=== PATIENT | male | born 1955 | race Caucasian/White ===

== ENCOUNTER 2019-06-09 04:16 | Inpatient (IN) | payer OTHER ==
[2019-06-09] VITALS (10 sets, daily range): BP systolic 119–161; BP diastolic 70–81
[~2019-06-09] VITALS: Ht 177.8 cm; Wt 89.8 kg
[~2019-06-09 04:16] MED LIST: CRESTOR20 MG PO; HYDR25TA PO; IBUP-1060 PO; TRAM50TA PO
[2019-06-09] MEDS ORDERED: AMLO1CAP54 PO (06:02)
[2019-06-09] MEDS ORDERED: CRESTOR5 MG PO (06:02)
[2019-06-09] MEDS ORDERED: CETI10TA16 PO (06:02)
[2019-06-09] MEDS ORDERED: diphenhydrAMINE 50 MG/ML VIAL IVP PRN (07:15)
[2019-06-09] MEDS ORDERED: hydrALAZINE 20 MG/ML VIAL. IVP PRN (07:15)
[2019-06-09] MEDS ORDERED: EPINEPHrine 1 MG/ML VIAL IM PRN (07:15)
[2019-06-09] MEDS: methylPREDNISolone SOD SUCC PF 125 MG/2 ML VIAL. IV SCH ×4 (08:29→23:45)
[2019-06-09] MEDS: FAMOTIDINE 20 MG/2 ML VIAL IVP SCH ×2 (08:29→21:00)
--- NOTE | 2019-06-09 11:21 | PDOC ---
PULMONARY PROGRESS NOTES Vitals Vital Signs Date Time Temp Pulse Resp B/P (MAP) Pulse Ox O2 Delivery O2 Flow Rate FiO2 06/09/19 09:00 76 94 Room Air 06/09/19 06:00 18 06/09/19 05:30 98.1 98.1 Medications Active Scripts Medications Dose Route/Sig Max Daily Dose Days Date Category Amlodipine-Benazepril 10-40 Mg (Amlodipine Besylate/Benazepril) 1 Each Capsule 1 Cap PO DAILY 06/09/19 Reported Cetirizine Hcl 10 Mg Tablet 1 Tab PO DAILY 06/09/19 Reported Crestor (Rosuvastatin Calcium) 5 Mg Tablet 1 Tab PO DAILY 06/09/19 Reported Impression . DICTATED OK TO TRANSFER OUT OF ICU ANGIOEDEMA COPD THANKS SHEYLA LOPEZ MD Jun 09, 2019 11:21
--- NOTE | 2019-06-09 11:38 | HP ---
ADMIT DATE: 06/09/2019 HISTORY OF PRESENT ILLNESS: The patient is a 63-year-old male patient who presented to the Emergency Room of [facility] with markedly swollen tongue. He woke up to urinate around midnight and felt like his tongue felt weird, he looked in the mirror and discovered that left side of his tongue was significantly swollen. Since that time, the patient has had some increasing difficulty swallowing, had no difficulty breathing. He does feel like it is a bit worse since he woke up and had angioedema one time in the past due to antihypertensive medication. He does not remember if it was lisinopril or not, in fact when I asked him, he said it was lisinopril and was switched at that time to valsartan, but unfortunately valsartan was withdrawn from the market and therefore he was put back on a combo of amlodipine and benazepril. On questioning him, none of his family members have similar problems before. He denied any new medication or food. He took 50 mg of Benadryl by mouth on his own before he arrived to the Emergency Room. He was evaluated by the ER physician and was given Solu-Medrol 125 mg together with Benadryl as well as epinephrine and as he continued to have markedly swollen tongue, a decision was made to transfer him to [facility] ICU in case he might require tracheostomy tube placement if the swelling continues or worsens. PAST MEDICAL HISTORY: Significant for hypertension, hyperlipidemia, benign prostatic hypertrophy, has had an episode of angioedema related to his lisinopril diagnosed in April 2018. PAST SURGICAL HISTORY: Significant for hemorrhoidectomy, has also right middle finger laceration that required suturing and also colonoscopy. ALLERGIES: He is allergic to LISINOPRIL AND ALL GHANSHYAM INHIBITORS. MEDICATIONS: He is currently on following medications: He is on cetirizine 10 mg once a day, Crestor 5 mg once a day as well as mixture of amlodipine as well as benazepril, he is also on albuterol inhaler as well as multivitamin. FAMILY HISTORY: He has 3 sisters, younger and all have hypertension. Father at age of 70 because of lung cancer and mother at age of 84 because of COPD. SOCIAL HISTORY: He is , has no children. He smokes 1 to 1-1/2 packs per day. Does not drink alcohol or use any drugs. 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 He is a concrete and stone worker, works for a company. REVIEW OF SYSTEMS: The patient denied any blurring of vision, cataract, glaucoma or macular degeneration. Denied any earache, tinnitus or sensorineural deafness. Denied any nosebleeds, stuffy nose or postnasal drip. Denied any sore throat, sore tongue, toothache, hoarseness of voice or difficulty swallowing. Denied any nausea, vomiting, diarrhea or constipation. Denied any hematemesis, melena or hematochezia. Denied any dysuria, frequency or hematuria, but did complain of nocturia. Denied any chest pain or shortness of breath, but did complain of cough with whitish sputum. Denied any chills, rigors, or fever. Denied any dizziness or lightheadedness. PHYSICAL EXAMINATION: GENERAL: On arrival to the Emergency Room, he looked well and was clearly in no apparent respiratory distress. No pallor, jaundice, cyanosis or thyromegaly. No jugular venous distention. No limb edema. VITAL SIGNS: His heart rate was 78, blood pressure was 160/86, temperature was 98, respiratory rate was 20, and oxygen saturation was 93% on room air. HEAD, EYES, EARS, NOSE AND THROAT: Showed normocephalic, atraumatic. He definitely has marked swollen tongue according to ER physician. NECK: Supple. HEART: Showed normal first and second heart sounds. No gallop or murmur. CHEST: Clear to auscultation. No crepitation or rhonchi. ABDOMEN: Distended, soft, nontender. NEUROLOGIC: He was awake, alert, responding appropriately. All cranial nerves intact. EXTREMITIES: He moves extremities without difficulty. LABORATORY DATA: On arrival to the Emergency Room showed white cell count [id number], hemoglobin 14.8, hematocrit 45, MCV 86 and platelet count 240,000 with normal manual differential. His serum sodium was 141, potassium 4, chloride 105, bicarbonate 26, anion gap of 10, BUN 28, creatinine 1, estimated GFR was 76 mL per minute, his glucose was 100 and calcium was 9. Total bilirubin, AST, ALT, alkaline phosphatase were normal. Total protein was 7.5. Albumin was 3.5. ASSESSMENT AND PLAN: In summary, this is a 63-year-old male patient who has experienced second episode of angioedema. The first one was a year ago due to lisinopril and this time to benazepril. I explained to him that he should not take this benazepril anymore or any member of its GHANSHYAM inhibitor family, should be on angiotensin blocking receptor agent. Apparently tried the valsartan, but unfortunately it was withdrawn from the market. By the time I saw him in the ICU in [facility], his tongue has improved dramatically and has no shortness of breath and no difficulty swallowing. We will start him on his regular diet, he can be transferred to the floor. I will obviously discontinue benazepril and start him on perhaps Diovan, I will contact the pharmacy to find out it was available. ROSALIA MCKENZIE MD DR: IONA/yudi JOB#: [id number] / [id number]
--- NOTE | 2019-06-09 16:03 | NUR ---
SS following for discharge planning. SS reviewed pt chart. Pt is from home with spouse and is currently on room air. SS will continue to follow for discharge planning.
[2019-06-10 03:20] VITALS: BP 146/70
--- NOTE | 2019-06-10 06:07 | CONS ---
DATE OF CONSULTATION: 06/09/2019 ATTENDING PHYSICIAN: Sourav Anand MD REASON FOR CONSULTATION: The patient seen in pulmonary consultation at the request of Dr. Anand for respiratory distress, angioedema. HISTORY OF PRESENT ILLNESS: The patient is a 63-year-old who presented to the Emergency Room at [facility]. He woke up having tongue swelling. He was having difficulty swallowing in his secretions, increasing shortness of breath. The patient was recently started on an GHANSHYAM inhibitor. He was stabilized in the Emergency Room and transferred to [facility] for higher acuity of care. He was then placed in the intensive care unit and supported. Overnight, he has improved. His tongue has gone down. He did not require any noninvasive ventilation. The patient does smoke. He tried to quit smoking several years ago. He smokes up to a pack of cigarettes a day and has done so for most of his adult life. He has not been diagnosed with COPD, uses albuterol on a p.r.n. basis, does not have any frequent acute exacerbations of COPD. PAST MEDICAL HISTORY: Remarkable for hypertension, hyperlipidemia, osteoarthritis, tobacco dependence, COPD, unknown FEV1. ALLERGIES: TO GHANSHYAM INHIBITORS. REVIEW OF SYSTEMS: As indicated above, otherwise, a 10-point system was reviewed and negative. CURRENT MEDICATION: List was reviewed. SOCIAL HISTORY: He smokes. He works in construction. FAMILY HISTORY: Remarkable for lung cancer. Father at the age of 70. PHYSICAL EXAMINATION: GENERAL: The patient was in the intensive care unit. He is currently doing better. VITAL SIGNS: He is on room air saturation 94%. HEENT: Eyes, the sclerae were nonicteric. Tongue, the patient was able to protrude his tongue. It was definitely swollen, but decreased in comparison to yesterday. NECK: Jugular venous distention was not elevated. No lymphadenopathy. CHEST: Full expansion. LUNGS: Adequate airway flow with no wheezes. CARDIOVASCULAR: Regular rate and rhythm with S1, S2, no S3. ABDOMEN: Soft, nontender, nondistended. EXTREMITIES: No clubbing, cyanosis, or edema. LABORATORY DATA: Reviewed. Chest x-ray was likewise reviewed. IMPRESSION: 1. Respiratory distress secondary to angioedema. 2. Angioedema related to GHANSHYAM inhibitor utilization. 3. Hypertension. 4. Tobacco dependent. 5. Chronic obstructive pulmonary disease. 6. Prior history of pulmonary nodule that was followed for over 2 years. PLAN: 1. The patient has improved. We will transfer out of the intensive care unit. 2. Outpatient PFTs and surveillance CT chest for early lung cancer. 3. The patient instructed on the importance of discontinuing tobacco use. I do appreciate the privilege in sharing in the patient's care. SHEYLA LOPEZ MD DR: MAE/yudi JOB#: [id number] / [id number]
[2019-06-10] MEDS: methylPREDNISolone SOD SUCC PF 125 MG/2 ML VIAL. IV SCH (07:05)
[2019-06-10 08:29] VITALS: BP 146/56
[2019-06-10] MEDS: FAMOTIDINE 20 MG/2 ML VIAL IVP SCH (08:41)
[2019-06-10] MEDS ORDERED: LOSA100T14 PO (09:36)
[2019-06-10] MEDS ORDERED: AMLO10TA8 PO (09:36)
--- NOTE | 2019-06-10 10:56 | PDOC ---
PULMONARY PROGRESS NOTES Vitals Vital Signs Date Time Temp Pulse Resp B/P (MAP) Pulse Ox O2 Delivery O2 Flow Rate FiO2 06/10/19 08:29 97.8 67 22 146/56 (86) 97 Room Air 97.8 Medications Active Scripts Medications Dose Route/Sig Max Daily Dose Days Date Category Amlodipine-Benazepril 10-40 Mg (Amlodipine Besylate/Benazepril) 1 Each Capsule 1 Cap PO DAILY 06/09/19 Reported Cetirizine Hcl 10 Mg Tablet 1 Tab PO DAILY 06/09/19 Reported Crestor (Rosuvastatin Calcium) 5 Mg Tablet 1 Tab PO DAILY 06/09/19 Reported Impression . IMPRESSION: 1. Respiratory distress secondary to angioedema. 2. Angioedema related to GHANSHYAM inhibitor utilization. 3. Hypertension. 4. Tobacco dependent. 5. Chronic obstructive pulmonary disease. 6. Prior history of pulmonary nodule that was followed for over 2 years. Plan . 1. The patient has improved. We will transfer out of the intensive care unit. 2. Outpatient PFTs and surveillance CT chest for early lung cancer. 3. The patient instructed on the importance of discontinuing tobacco use. SHEYLA LOPEZ MD Jun 10, 2019 10:56
--- NOTE | 2019-06-10 12:20 | NUR ---
Discharge Note: [facility] Discharge instructions and discharge home medications reviewed with Patient and a copy given. All questions have been answered and understanding verbalized. The following instructions and handouts were given: follow up instructions, prescriptions for medrol dose pack, amlodipine, losartan and medication education Discontinued lines and drains: 20 gauge right ac, tip intact. patient tolerated well. Patient discharged to home with self care via significant other.
--- NOTE | 2019-06-10 18:24 | DS ---
DATE OF DISCHARGE: 06/10/2019 HOSPITAL COURSE: The patient is a 63-year-old male patient who was seen yesterday at [facility] Emergency Room for markedly swollen tongue and difficulty swallowing. I transpired that he developed angioneurotic edema as he has on benazepril. He apparently has had another similar episode a year ago and he was on lisinopril and basically was treated aggressively with IV Solu-Medrol, Benadryl, Pepcid as well as epinephrine and he did actually very well. All the swelling has completely subsided. He has no further episode of difficulty swallowing or shortness of breath. He was given clear instruction to avoid all GHANSHYAM inhibitors and we switched him to an ARB angiotensin receptor sussy agent in the form of losartan. He was also counseled to quit smoking and given literature for that and was discharged home to continue on his amlodipine as well as losartan instead of benazepril. PHYSICAL EXAMINATION: GENERAL: When I saw him this morning, he looked well and was clearly in no apparent respiratory distress. No pallor, jaundice, cyanosis or thyromegaly. No jugular venous distention. No limb edema. VITAL SIGNS: His heart rate was 67, blood pressure was 146/56, temperature was 97.8, respiratory rate was 22 and oxygen saturation was 97%. HEAD, EYES, EARS, NOSE AND THROAT: Showed normocephalic, atraumatic. NECK: Supple. HEART: Showed normal first and second heart sounds. No gallop or murmur. CHEST: Clear to auscultation. No crepitation or rhonchi. ABDOMEN: Distended, soft, nontender. NEUROLOGIC: He is awake, alert, responding appropriately. All cranial nerves are intact. He moves extremities without difficulty. DISCHARGE MEDICATIONS: The patient was discharged home to continue on amlodipine besylate 10 mg once a day, losartan potassium 100 mg once a day, cetirizine 10 mg once a day, Crestor 5 mg at bedtime. I have discontinued his amlodipine/benazepril combination. FINAL DISCHARGE DIAGNOSES: Angioneurotic edema resolved, hypertension, hyperlipidemia and tobacco abuse. ROSALIA MCKENZIE MD DR: IONA/yudi JOB#: [id number] / [id number]
== END 2019-06-10 12:05 | disposition home or self-care (01) | DRG 916 ==
LOC: 1 WEST ICU 05:27 → 6 SOUTH 16:40
PROVIDERS: ADMIT Internal Medicine; ATTEND Internal Medicine
DX: T78.3XXA Angioneurotic edema, initial encounter (principal); E78.5 Hyperlipidemia, unspecified; J44.9 Chronic obstructive pulmonary disease, unspecified; N40.0 Benign prostatic hyperplasia without lower urinary tract symptoms; I10 Essential (primary) hypertension; R13.10 Dysphagia, unspecified; T46.4X5A Adverse effect of angiotensin-converting-enzyme inhibitors, initial encounter; M19.90 Unspecified osteoarthritis, unspecified site; Z80.1 Family history of malignant neoplasm of trachea, bronchus and lung; Z82.49 Family history of ischemic heart disease and other diseases of the circulatory system; Z88.8 Allergy status to other drugs, medicaments and biological substances; Z82.5 Family history of asthma and other chronic lower respiratory diseases; Z79.899 Other long term (current) drug therapy; Y92.89 Other specified places as the place of occurrence of the external cause; F17.210 Nicotine dependence, cigarettes, uncomplicated
CPT/HCPCS: 99406; J2930; J3490; G0378

== ENCOUNTER 2020-07-23 08:20 | Outpatient (CLI) | payer OTHER ==
[2020-07-23] VITALS (11 sets, daily range): BP systolic 119–151; BP diastolic 61–90
[~2020-07-23] VITALS: Ht 177.8 cm; Wt 97.5 kg
[~2020-07-23 08:20] MED LIST changes: +AMLO-187 PO; +AMLO1CAP54 PO; +CETI10TA16 PO; +CRESTOR5 MG PO; +LOSA100T14 PO
[2020-07-23] MEDS ORDERED: HYDR-2765 PO (08:55)
[2020-07-23 08:57] LABS: BASO # 0.2 x10^3/uL (0.0-0.2); BASO % 1 % (0-3); EOS # 0.2 x10^3/uL (0.0-0.7); EOS % 2 % (0-3); HEMATOCRIT 47.6 % (39.0-53.0); HEMOGLOBIN 16.5 g/dL (13.0-17.5); LYMPH # 2.9 x10^3/uL (1.0-4.8); LYMPH % 25 % (24-48); MEAN CORPUSCULAR HEMOGLOBIN 29 pg (25-35); MEAN CORPUSCULAR HGB CONC 35 g/dL (31-37); MEAN CORPUSCULAR VOLUME 85 fL (79-100); MONO # 0.8 x10^3/uL (0.0-1.1); MONO % 7 % (0-9); NEUT # 7.7 x10^3/uL (1.8-7.7); NEUT % 65 % (31-73); PLATELET COUNT 203 x10^3/uL (140-400); RED BLOOD COUNT 5.63 x10^6/uL (4.30-5.70); RED CELL DISTRIBUTION WIDTH 15.5 % (11.5-14.5); WHITE BLOOD COUNT 11.8 x10^3/uL (4.0-11.0)
[2020-07-23 09:22] LABS: PROTHROMBIN TIME PATIENT 12.6 SEC (11.7-14.0)
[2020-07-23] MEDS ORDERED: LIDOCAINE WITH 8.4% SOD BICARB 3 ML DISP.SYRIN. ONE (09:30)
[2020-07-23] MEDS ORDERED: MIDAZOLAM HCL/PF 2 MG/2 ML VIAL. ONE (09:31)
[2020-07-23] MEDS ORDERED: fentaNYL PF VIAL 100 MCG/2 ML VIAL ONE (09:32)
[2020-07-23] MEDS ORDERED: FLUMAZENIL 0.5 MG/5 ML VIAL. IV ONE ×2 (09:32→09:33)
[2020-07-23] MEDS ORDERED: NALOXONE 0.4 MG/ML VIAL. ONE (09:33)
[2020-07-23] MEDS ORDERED: fentaNYL PF VIAL 100 MCG/2 ML VIAL IV ONE (10:00)
[2020-07-23] MEDS ORDERED: LIDOCAINE WITH 8.4% SOD BICARB 3 ML DISP.SYRIN. IJ ONE (10:00)
[2020-07-23] MEDS ORDERED: MIDAZOLAM HCL/PF 2 MG/2 ML VIAL. IV ONE (10:00)
--- NOTE | 2020-07-23 10:54 | RAD ---
CT-guided biopsy, lingular irregular nodular opacity 07/23/2020 Clinical Indication: Irregular linear opacity, persisting over 6 months. Sedation: Conscious sedation was administered for 30 minutes. The patient was monitored by a qualified independent observer throughout the time of sedation. Please refer to the medical record for exact doses of medications utilized to achieve moderate sedation. Sterility: The procedure was performed in its entirety using appropriate elements of sterile technique. Consent: The procedure was explained in its entirety to the patient or the patients designated loss control representative by a member of the treatment team, including a discussion of the risks, benefits and commonly accepted alternatives to the procedure, as well as the expected consequences of no therapy whatsoever. Discussion of the risks included, but was not limited to, those that are most frequent and those that are rare but possibly severe or life-threatening, as well as the possibility of unforeseen complications. Technique and Findings: Following informed consent, the patient was prepped and draped in the usual sterile fashion. 1% Lidocaine was used to achieve local anesthesia over anterior left chest. 1% lidocaine was administered for local anesthesia. CT imaging redemonstrates an irregular opacity in the lingula. Under intermittent CT guidance 17-gauge needle was advanced to this area, and core biopsies were obtained. Mild perilesional hemorrhage obscured the visualization of the targeted area. The needle was removed and manual pressure was held. Repeat imaging demonstrates no pneumothorax, significant increase in hemorrhage, or other complication. Sterile dressings were applied. Impression: CT-guided biopsy, irregular lingular opacification PQRS Compliance Statement: One or more of the following individualized dose reduction techniques were utilized for this examination: 1. Automated exposure control 2. Adjustment of the mA and/or kV according to patient size 3. Use of iterative reconstruction technique
--- NOTE | 2020-07-23 12:56 | NUR ---
pt ambulated and tolerated PO. PIV dc'd. discharge instructions reviewed with pt. pt home in private vehicle with friend
--- NOTE | 2020-07-23 16:43 | RAD ---
Portable chest x-ray without comparison for status post lung biopsy. FINDINGS: There is no pneumothorax or pleural effusion. Hazy density in the medial right and lateral left lung bases is nonspecific and may represent atelectasis or infiltrate. Heart size is within normal limits. Degenerative changes of the acromioclavicular joint are noted. IMPRESSION: 1. No pneumothorax or pleural effusion status post left lung biopsy. Small bibasilar infiltrates are nonspecific. Electronically signed by: James Renteria MD (07/23/2020 4:40 PM) [id number]
--- NOTE | 2020-07-25 13:09 | PATHOLOGY ---
[facility] Accession Number: [id number] . 01 Material submitted: . lung - LEFT LUNG BIOPSY. Modifiers: left . 01 Clinical history: . LEFT LUNG MASS . 02 Diagnosis: Lung tissue, left lung mass CT guided needle biopsy: - No significant pathologic abnormalities. (JPM:[facility] 07/25/2020) [facility] 07/25/2020 0903 Local . 02 Comment: Sections of the left lung mass CT guided needle biopsy reveal a segment of lung parenchyma. Air spaces are artifactually compressed with no intra-alveolar inflammatory exudate noted. The alveolar septae are thin and delicate. Near one end there is a small portion of bronchiolar mucosa showing mild chronic inflammation. There is also a small lymphoid aggregate focally present within the interstitium with adjacent anthracotic pigmented macrophages present. There is no atypia or evidence of malignancy. It would appear that the targeted lesion is not present within the biopsy. (JPM:[facility] 07/25/2020) . 02 Electronically signed: . Karlos Horton MD, Pathologist NPI- [id number] . 01 Gross description: . The specimen is received in formalin, labeled "Kevin Singh, left lung mass" and consists of a delicate needle core of barber tissue measuring 1.0 cm in length and less than 0.1 cm in diameter which is entirely submitted in A1. (SDY; 07/24/2020) SYU/SYU 07/24/2020 1056 Local . 02 Pathologist provided ICD-10: R91.8 . 02 CPT . 581133 Specimen Comment: A courtesy copy of this report has been sent to [phone], [phone] Specimen Comment: [id number], Specimen Comment: Report sent to Dr.SELSERDR LOPEZ / DR WALLS Performed at: 01 [facility] [address], [place], [place] [id number] MD Vance Benjamin MD Phone: [phone] Performed at: 02 [facility] [address] [place], [place] [id number] MD Karlos Horton MD Phone: [phone]
== END 2020-07-23 13:23 | disposition home or self-care (01) ==
LOC: INTRAD 08:20
PROVIDERS: ATTEND Internal Medicine Pulmonary Disease
DX: R91.8 Other nonspecific abnormal finding of lung field (principal); R18.8 Other ascites; I10 Essential (primary) hypertension; E78.00 Pure hypercholesterolemia, unspecified; J44.9 Chronic obstructive pulmonary disease, unspecified; G47.30 Sleep apnea, unspecified; K21.9 Gastro-esophageal reflux disease without esophagitis; M19.90 Unspecified osteoarthritis, unspecified site; F17.210 Nicotine dependence, cigarettes, uncomplicated; Z85.118 Personal history of other malignant neoplasm of bronchus and lung; Z79.899 Other long term (current) drug therapy; Z98.890 Other specified postprocedural states; Z88.8 Allergy status to other drugs, medicaments and biological substances
CPT/HCPCS: 32405; 36415; 71045; 77012; 85025; 85610; 88305; 99152; 99153; J2250; J3010; J3490